=== PATIENT | female | born 1960 | race Hispanic/Latino ===

== ENCOUNTER 2020-03-29 11:46 | Emergency (ER) | payer OTHER ==
[2020-03-29] MEDS ORDERED: IBUPROFEN 600 MG TABLET ONE (12:12)
== END 2020-03-29 13:32 | disposition home or self-care (01) ==
LOC: EDH 11:46
DX: S52.611A Displaced fracture of right ulna styloid process, initial encounter for closed fracture (principal); S52.531A Colles' fracture of right radius, initial encounter for closed fracture; S00.83XA Contusion of other part of head, initial encounter; S00.11XA Contusion of right eyelid and periocular area, initial encounter; W17.89XA Other fall from one level to another, initial encounter; Y93.89 Activity, other specified; Y92.098 Other place in other non-institutional residence as the place of occurrence of the external cause; Y99.8 Other external cause status
CPT/HCPCS: 29125; 73110